=== PATIENT | female | born 1995 | race Caucasian/White ===

== ENCOUNTER → 2018-06-15 | Outpatient (CLI) | payer BC, MEDICAID ==
[~2018-06-15] MED LIST: GADOBUTROL 10 ML VIAL IVP ONE; GLUCAGON HCL 0.3 MG in SYRINGE 0.3 ML IVP ONE
== END ==
LOC: FIMAGING 11:36
PROVIDERS: ATTEND Physician Assistant
DX: K59.00 Constipation, unspecified (principal); N83.201 Unspecified ovarian cyst, right side; K50.012 Crohn's disease of small intestine with intestinal obstruction
CPT/HCPCS: A9585; J1610